=== PATIENT | female | born 1975 | race African-American/Black ===

== ENCOUNTER 2017-08-26 10:53 | Emergency (ER) | payer OTHER ==
[~2017-08-26] VITALS: Ht 160 cm; Wt 87.0 kg
[2017-08-26 11:37] LABS: BASOPHILS % 0.4 % (0.0-2.0); EOSINOPHILS % 1.7 % (0.0-5.0); HEMATOCRIT. 37.6 % (36.0-48.0); HEMOGLOBIN. 12.7 g/dL (12.0-16.0); LYMPHOCYTES % 24.5 % (20.0-50.0); MEAN CORPUSCULAR HEMOGLOBIN 32.2 pg (28.0-32.0); MEAN CORPUSCULAR VOLUME 95.5 fL (81.0-99.0); MEAN PLATELET VOLUME 7.2 fl (7.4-10.4); MONOCYTES % 7.7 % (2.0-8.0); NEUTROPHILS % 65.7 % (40.0-76.0); PLATELET 374 x1000/uL (130-400); RED BLOOD CELL COUNT 3.94 mill/uL (4.2-5.4); RED CELL DISTRIBUTION WIDTH 15.6 % (11.6-14.6)
[2017-08-26 11:39] LABS: CHLORIDE 112 mEq/L (98-107)
[2017-08-26 11:43] LABS: ETHANOL BLOOD < 10 mg/dL
[2017-08-26] MEDS ORDERED: LORAZEPAM 2MG/ML CPJ IV ONE (16:00)
[2017-08-26] MEDS ORDERED: LORAZEPAM 2MG/ML CPJ IM ONE (16:15)
[2017-08-26 18:45] VITALS: BP 126/109
== END 2017-08-26 19:30 | disposition left against medical advice (07) ==
LOC: EDBD 11:13 → ER 11:13 → CANRESERV 21:56 → ENRESERV 21:56 → CANBEDREQ 08-27 03:35
DX: R41.82 Altered mental status, unspecified (principal); R45.1 Restlessness and agitation; Z78.1 Physical restraint status
CPT/HCPCS: 36415; 80053; 85025; 93005; 96372; 96374; 99285; G0482; J2060

== ENCOUNTER 2017-09-04 15:15 | Emergency (ER) | payer OTHER ==
[~2017-09-04] VITALS: Ht 175.3 cm; Wt 94.0 kg
[2017-09-04] MEDS ORDERED: LORAZEPAM 2MG/ML CPJ IM PRN (20:00)
[2017-09-04] MEDS ORDERED: OLANZAPINE 10 MG/VIAL IM STA (20:02)
[2017-09-04] MEDS ORDERED: LORAZEPAM 2MG/ML CPJ IM STA (20:02)
[2017-09-04 22:56] LABS: BASOPHILS % 0.2 % (0.0-2.0); CHLORIDE 108 mEq/L (98-107); EOSINOPHILS % 3.7 % (0.0-5.0); HEMATOCRIT. 34.1 % (36.0-48.0); HEMOGLOBIN. 11.2 g/dL (12.0-16.0); LYMPHOCYTES % 35.4 % (20.0-50.0); MEAN CORPUSCULAR HEMOGLOBIN 31.8 pg (28.0-32.0); MEAN CORPUSCULAR VOLUME 96.7 fL (81.0-99.0); MEAN PLATELET VOLUME 7.6 fl (7.4-10.4); MONOCYTES % 8.8 % (2.0-8.0); NEUTROPHILS % 51.9 % (40.0-76.0); PLATELET 295 x1000/uL (130-400); RED BLOOD CELL COUNT 3.53 mill/uL (4.2-5.4); RED CELL DISTRIBUTION WIDTH 15.2 % (11.6-14.6)
[2017-09-04 23:01] LABS: ETHANOL BLOOD < 10 mg/dL
[2017-09-05] MEDS ORDERED: OLANZAPINE 10 MG/VIAL IM ONE (07:30)
[2017-09-05] MEDS ORDERED: DIPHENHYDRAMINE 50MG/ML VIAL IM ONE ×2 (07:30→20:15)
[2017-09-05] MEDS ORDERED: LORAZEPAM 2MG/ML CPJ IM ONE ×2 (08:15→11:15)
[2017-09-05 08:23] LABS: T4 FREE 0.9 ng/dL (0.76-1.46)
[2017-09-05 11:25] LABS: HCG SCREEN NEGATIVE
[2017-09-05] MEDS ORDERED: LORAZEPAM 2MG/ML CPJ IV ONE (15:45)
[2017-09-05 16:17] LABS: CLARITY URINE CLEAR (CLEAR); COLOR URINE DARK YELLOW (YELLOW); KETONES URINE TRACE (NEGATIVE); LEUKOCYTE ESTERASE URINE NEGATIVE (NEGATIVE); NITRITE URINE NEGATIVE (NEGATIVE); OCCULT BLOOD URINE NEGATIVE (NEGATIVE); PH URINE 5.5 (4.5-8.0); PROTEIN URINE NEGATIVE (NEGATIVE); SPECIFIC GRAVITY URINE 1.033 (1.005-1.030); UROBILINOGEN URINE 0.2 E.U./dL (0.2-1.0)
[2017-09-05 16:28] LABS: *BARBITURATES SCREEN URINE NEGATIVE (NEGATIVE)
[2017-09-05 16:29] LABS: *AMPHETAMINES SCREEN URINE NEGATIVE (NEGATIVE); *BENZODIAZEPINES SCREEN URINE NEGATIVE (NEGATIVE); *COCAINE SCREEN URINE NEGATIVE (NEGATIVE); METHADONE URINE SCREEN NEGATIVE (NEGATIVE); OPIATES URINE SCREEN NEGATIVE (NEGATIVE)
[2017-09-05 16:30] LABS: CANNABINOID URINE SCREEN NEGATIVE (NEGATIVE)
[2017-09-05 16:53] LABS: PHENCYCLIDINE URINE SCREEN PRESUMTIVE POSITIVE (NEGATIVE)
[2017-09-05] MEDS ORDERED: HALOPERIDOL LACTATE 5MG/ML VIAL IM ONE (20:15)
[2017-09-06] MEDS ORDERED: LORAZEPAM 2MG/ML CPJ IV ONE
[2017-09-06] MEDS ORDERED: LORAZEPAM 2MG/ML CPJ IM PRN (03:45)
[2017-09-06] MEDS ORDERED: DIPHENHYDRAMINE 50MG/ML VIAL IM PRN (03:45)
[2017-09-06] MEDS ORDERED: HALOPERIDOL LACTATE 5MG/ML VIAL IM ONE (08:45)
[2017-09-06] MEDS: QUETIAPINE FUMARATE 25MG TABLET PO SCH (10:35)
[2017-09-06] MEDS ORDERED: DIPHENHYDRAMINE 25MG CAPSULE PO ONE (14:00)
[2017-09-06] MEDS ORDERED: LORAZEPAM 2MG/ML CPJ IM ONE (14:00)
[2017-09-07] MEDS ORDERED: LORAZEPAM 2MG/ML CPJ IM PRN (00:15)
[2017-09-07] MEDS ORDERED: OLANZAPINE 10 MG/VIAL IM ONE (00:15)
[2017-09-07] MEDS ORDERED: OLANZAPINE 5MG TABLET PO SCH (09:00)
[2017-09-07] MEDS: QUETIAPINE FUMARATE 25MG TABLET PO SCH (10:00)
[2017-09-07] MEDS ORDERED: DIVALPROEX SODIUM 500MG DR TABLET PO SCH (21:00)
[2017-09-07] MEDS ORDERED: QUETIAPINE FUMARATE 100MG TABLET PO SCH ×2 (21:00→22:00)
[2017-09-07] MEDS: DIVALPROEX SODIUM 500MG DR TABLET PO SCH (22:13)
[2017-09-08] MEDS: LORAZEPAM 2MG/ML CPJ IM PRN ×2 (06:49→20:26)
[2017-09-08] MEDS: DIVALPROEX SODIUM 500MG DR TABLET PO SCH ×2 (09:00→21:56)
[2017-09-08] MEDS: QUETIAPINE FUMARATE 100MG TABLET PO SCH ×2 (10:56→21:56)
[2017-09-08] MEDS ORDERED: QUETIAPINE FUMARATE 100MG TABLET PO SCH (21:00)
[2017-09-09] MEDS: DIVALPROEX SODIUM 500MG DR TABLET PO SCH ×2 (09:00→21:11)
[2017-09-09] MEDS: QUETIAPINE FUMARATE 100MG TABLET PO SCH ×2 (09:00→21:11)
[2017-09-09] MEDS: LORAZEPAM 2MG/ML CPJ IM PRN ×2 (10:28→18:32)
[2017-09-10] MEDS: LORAZEPAM 2MG/ML CPJ IM PRN ×3 (03:24→18:09)
[2017-09-10] MEDS: QUETIAPINE FUMARATE 100MG TABLET PO SCH ×2 (09:22→21:20)
[2017-09-10] MEDS: DIVALPROEX SODIUM 500MG DR TABLET PO SCH ×2 (09:22→21:20)
[2017-09-10] MEDS ORDERED: IBUPROFEN 600MG TABLET PO STA (20:12)
[2017-09-10] MEDS ORDERED: HALOPERIDOL 5MG TABLET PO ONE (20:15)
[2017-09-11] MEDS: LORAZEPAM 2MG/ML CPJ IM PRN (00:52)
[2017-09-11] MEDS: QUETIAPINE FUMARATE 100MG TABLET PO SCH (09:00)
[2017-09-11] MEDS: DIVALPROEX SODIUM 500MG DR TABLET PO SCH (09:00)
[2017-09-11 16:46] VITALS: BP 139/81
== END 2017-09-11 17:00 ==
LOC: ER 15:15
DX: F16.129 Hallucinogen abuse with intoxication, unspecified (principal); F23 Brief psychotic disorder; R45.1 Restlessness and agitation; F20.9 Schizophrenia, unspecified; F91.9 Conduct disorder, unspecified; Z78.1 Physical restraint status; Z75.1 Person awaiting admission to adequate facility elsewhere
CPT/HCPCS: 36415; 70450; 80053; 80305; 81003; 84439; 84443; 84481; 84703; 85025; 96372; 96374; 99285; G0482; J1200; J1630; J2060; J3490; Z7610; Q0163

== ENCOUNTER 2017-11-28 12:20 | Emergency (ER) | payer OTHER ==
[~2017-11-28] VITALS: Ht 175.3 cm; Wt 121.0 kg
[2017-11-28 12:22] VITALS: BP 160/90
== END 2017-11-28 12:41 | disposition left against medical advice (07) ==
LOC: ER 12:35
DX: R41.82 Altered mental status, unspecified (principal); Z53.21 Procedure and treatment not carried out due to patient leaving prior to being seen by health care provider

== ENCOUNTER 2018-04-02 07:15 | Emergency (ER) | payer OTHER ==
[~2018-04-02] VITALS: Ht 175.3 cm; Wt 104.0 kg
[2018-04-02 07:40] VITALS: BP 136/78
== END 2018-04-02 17:30 | disposition left against medical advice (07) ==
LOC: ER 07:15
DX: Z59.0 Homelessness (principal); Z53.21 Procedure and treatment not carried out due to patient leaving prior to being seen by health care provider